=== PATIENT | female | born 1945 | race Caucasian/White ===

== ENCOUNTER 2018-09-01 14:40 | Emergency (ER) | payer MEDICARE ==
--- NOTE | 2018-09-01 15:34 | EDM.PDOC ---
ED HPI GENERAL MEDICAL PROBLEM - General Chief Complaint: Lower Extremity Injury/Pain Stated Complaint: FELL ON KNEE REPLACEMENT Time Seen by Provider: 09/01/18 15:25 Source of Information: Reports: Patient History Limitations: Reports: No Limitations - History of Present Illness INITIAL COMMENTS - FREE TEXT/NARRATIVE: 73-year-old female had a total knee replacement on the left side in February, 3 weeks ago fell and struck her knee hard on the ground. She told her orthopedic surgeon about attending was told it was probably fine, however she continues to have pain and swelling and now it feels warm. It's painful to ambulate. She came in today to have it checked. She is here for the summer. Onset: Gradual Associated Symptoms: Denies: Fever/Chills, Loss of Appetite, Malaise, Nausea/ Vomiting - Related Data Allergies Allergy/AdvReac Type Severity Reaction Status Date / Time Sulfa (Sulfonamide Allergy Vomiting Verified 09/01/18 15:13 Antibiotics) Home Meds: Home Meds Acyclovir [Zovirax] 09/01/18 [History] Sertraline [Zoloft] 09/01/18 [History] Past Medical History Psychiatric History: Reports: Depression - Past Surgical History Female Surgical History: Reports: Oophorectomy Musculoskeletal Surgical History: Reports: Knee Replacement Social & Family History - Tobacco Use Smoking Status *Q: Never Smoker Review of Systems - Review of Systems Review Of Systems: See Below Constitutional: Denies: Fever Respiratory: Reports: No Symptoms Cardiovascular: Reports: No Symptoms GI/Abdominal: Reports: No Symptoms Skin: Reports: Bruising (She's feels it's bruised around the knee) ED EXAM, GENERAL - Physical Exam Exam: See Below Exam Limited By: No Limitations General Appearance: Alert, No Apparent Distress Respiratory/Chest: No Respiratory Distress Extremities: Other (The left knee is somewhat swollen compared to the right knee. The surgical incision looks excellent, she is tender to palpation around the patella and patellar tendon.) Course - Vital Signs Last Recorded V/S: Last Vital Signs Temp 99.4 F 09/01/18 15:24 Pulse 71 09/01/18 15:24 Resp 14 09/01/18 15:24 BP 124/76 09/01/18 15:24 Pulse Ox 98 09/01/18 15:24 - Re-Assessments/Exams Free Text/Narrative Re-Assessment/Exam: 09/01/18 15:34 A left knee x-ray was obtained. 09/01/18 17:22 Left knee x-ray report didn't mention a small possible lucency under the tibial plateau laterally, recommended comparing to postoperative films. She was discharged with 10 doses of oxycodone for extra pain control, and is going to attempt to get films from [place] electronically and then recheck next week with Dr. Blake. Departure - Departure Time of Disposition: 17:31 Disposition: Home, Self-Care 01 Condition: Good Clinical Impression: Contusion of left knee Qualifiers: Encounter type: initial encounter Qualified Code(s): S80.02XA - Contusion of left knee, initial encounter - Discharge Information Instructions: Contusion, [id number] Referrals: PCP,None [Primary Care Provider] - Forms: ED Department Discharge Care Plan Goals: Activity as tolerated, take 2 Aleve twice daily and add Percocet for extra pain control if needed. Attempt to obtain a postoperative x-ray of your knee from [place] and follow-up with our orthopedic clinic next week as discussed. Return sooner if you're knee reddens or you develop fever.
--- NOTE | 2018-09-01 17:08 | CRLCR ---
Indication: Fall. Pain Technique: Three views of the left knee Comparison: None available Findings/Impression: Bones: A total left knee arthroplasty. Satisfactory hardware alignment. A small lucency underlying the lateral aspect of the tibial plate and the posterior aspect of the femoral component. Recommend comparison with baseline postoperative films to exclude loosening. No acute fracture or dislocation. Joint spaces: Increased attenuation in Hoffa`s fat pad which could represent edema or fibrosis. Soft tissues: Indistinctness of the patellar tendon with possible regional soft tissue swelling. Correlate clinically. Dictated by Merlin Mayfield MD @ 09/01/2018 5:07:30 PM Dictated by: Merlin Mayfield MD @ 09/01/2018 17:07:36 (Electronically Signed)
== END 2018-09-01 17:32 | disposition home or self-care (01) ==
LOC: JP.ED 14:40
DX: S80.02XA Contusion of left knee, initial encounter (principal); Z96.652 Presence of left artificial knee joint; W19.XXXA Unspecified fall, initial encounter; F32.9 Major depressive disorder, single episode, unspecified; Z88.2 Allergy status to sulfonamides; Z79.899 Other long term (current) drug therapy
CPT/HCPCS: 73562-LT; 99283-25